=== PATIENT | male | born 1940 | race African-American/Black ===

== ENCOUNTER 2018-04-05 14:53 | Emergency (ER) | payer MEDICARE, MEDICAID ==
[~2018-04-05] VITALS: Ht 188 cm; Wt 73.0 kg
[~2018-04-05 14:53] MED LIST: ASPI-1073 PO; CLOP75TA16 PO; ISOS60TA PO; LOP25 GT; P20 PO; PRED10TA PO
[2018-04-05] MEDS ORDERED: IBUPROFEN 600MG TABLET PO ONE (15:30)
[2018-04-05 17:52] VITALS: BP 136/72
== END 2018-04-05 17:54 | disposition home or self-care (01) ==
LOC: ER 14:57
DX: M54.2 Cervicalgia (principal); M54.5 Low back pain; E04.9 Nontoxic goiter, unspecified; J44.9 Chronic obstructive pulmonary disease, unspecified; E11.9 Type 2 diabetes mellitus without complications; I10 Essential (primary) hypertension; Z79.82 Long term (current) use of aspirin; Z79.01 Long term (current) use of anticoagulants; V49.40XA Driver injured in collision with unspecified motor vehicles in traffic accident, initial encounter; Y93.89 Activity, other specified; Y92.89 Other specified places as the place of occurrence of the external cause; Y99.8 Other external cause status
CPT/HCPCS: 72100; 72125; 99284